=== PATIENT | female | born 1970 | race Caucasian/White ===

== ENCOUNTER 2018-07-11 14:40 | Emergency (ER) | payer SELFPAY ==
[~2018-07-11] VITALS: Ht 160 cm; Wt 70.0 kg
[2018-07-11] MEDS ORDERED: ACETAMINOPHEN WITH CODEINE 300/30MG TABLET PO ONE (15:15)
[2018-07-11 18:21] LABS: BASOPHILS % 0.5 % (0.0-2.0); HEMATOCRIT. 43.1 % (36.0-48.0); HEMOGLOBIN. 14.1 g/dL (12.0-16.0); LYMPHOCYTES % 24.1 % (20.0-50.0); MEAN CORPUSCULAR HEMOGLOBIN 27.5 pg (28.0-32.0); MEAN CORPUSCULAR VOLUME 83.8 fL (81.0-99.0); MEAN PLATELET VOLUME 9.8 fl (7.4-10.4); MONOCYTES % 9.7 % (2.0-8.0); NEUTROPHILS % 62.7 % (40.0-76.0); PLATELET 246 x1000/uL (130-400); RED BLOOD CELL COUNT 5.14 mill/uL (4.2-5.4); RED CELL DISTRIBUTION WIDTH 14.1 % (11.6-14.6)
[2018-07-11 18:25] VITALS: BP 211/130
[2018-07-11 18:29] LABS: CHLORIDE 108 mEq/L (98-107)
[2018-07-11] MEDS ORDERED: HYDROCHLOROTHIAZIDE 25MG TABLET PO ONE (18:30)
== END 2018-07-11 18:53 | disposition home or self-care (01) ==
LOC: EDSEX 14:40 → ER 16:02
DX: M54.2 Cervicalgia (principal); I10 Essential (primary) hypertension; V49.49XA Driver injured in collision with other motor vehicles in traffic accident, initial encounter; Y93.89 Activity, other specified; Y92.410 Unspecified street and highway as the place of occurrence of the external cause
CPT/HCPCS: 36415; 99283